=== PATIENT | female | born 1935 | race Two or more races ===

== ENCOUNTER 2018-02-22 12:35 | Outpatient (CLI) | payer OTHER ==
[~2018-02-22 12:35] MED LIST: DIOVAN160 M1 PO; PRILOSEC20 MG PO; PROPRANOLOL HCL20 MG PO; RELAFEN500 MG PO; ZOCOR80 MG PO
== END 2018-02-22 13:00 | disposition home or self-care (01) ==
LOC: NUCLEAR 12:35
DX: M81.0 Age-related osteoporosis without current pathological fracture (principal); I11.9 Hypertensive heart disease without heart failure; J44.9 Chronic obstructive pulmonary disease, unspecified; F33.1 Major depressive disorder, recurrent, moderate; E44.1 Mild protein-calorie malnutrition; J41.0 Simple chronic bronchitis; E11.9 Type 2 diabetes mellitus without complications; Z68.20 Body mass index [BMI] 20.0-20.9, adult; N39.0 Urinary tract infection, site not specified; I70.0 Atherosclerosis of aorta

== ENCOUNTER 2019-06-19 14:04 | Emergency (ER) | payer OTHER ==
[~2019-06-19] VITALS: Ht 152.4 cm; Wt 40.8 kg
== END 2019-06-19 22:12 | disposition home or self-care (01) ==
LOC: ER 14:04
DX: J44.9 Chronic obstructive pulmonary disease, unspecified (principal)